=== PATIENT | female | born 1995 | race Two or more races ===

== ENCOUNTER 2016-12-27 16:05 | Emergency (ER) | payer MEDICAID ==
[~2016-12-27] VITALS: Ht 162.6 cm; Wt 97.5 kg
[~2016-12-27 16:05] MED LIST: PREN-96 PO
[2016-12-27 16:59] VITALS: BP 117/78
== END 2016-12-27 17:29 | disposition home or self-care (01) ==
LOC: ER 16:05

== ENCOUNTER 2017-07-25 15:08 | Emergency (ER) | payer MEDICAID ==
[~2017-07-25] VITALS: Ht 162.6 cm; Wt 116.1 kg
[2017-07-25 15:43] VITALS: BP 159/107
[2017-07-25] MEDS ORDERED: SUMAtriptan SUCCINATE 6 MG/0.5 ML VL SC ONE (16:00)
[2017-07-25] MEDS ORDERED: HYDROmorphone HCL 2 MG/ML VL IM ONE (16:00)
[2017-07-25] MEDS ORDERED: ONDANSETRON HCL 4 MG/2 ML VIAL IM ONE (16:00)
== END 2017-07-25 17:17 | disposition home or self-care (01) ==
LOC: ER 15:08
DX: G43.909 Migraine, unspecified, not intractable, without status migrainosus (principal); J32.9 Chronic sinusitis, unspecified
CPT/HCPCS: 96372; 99284; J1170; J2405; J3030

== ENCOUNTER 2025-02-14 11:40 | Emergency (ER) | payer MEDICAID ==
[~2025-02-14] VITALS: Ht 162.6 cm; Wt 82.0 kg
--- NOTE | 2025-02-14 11:52 | ED.PDOC ---
GI ASSESSMENT HPI Comments This is a 30-year-old female who comes in with chief complaint of vomiting and diarrhea for the past two days. The patient is also complaining of some shortness for breath as well as some abdominal pain which she describes as a 10/10. The patient came in somewhat hypertensive with a blood pressure of 144/111. She states that she has taken a couple of test lately and they were positive. Upon arrival, the patient is still having vomiting despite receiving 4 mg of Zofran IV EN route. The patient also denies any recent ETOH use but states that she did use some marijuana approximately one week ago. Chief Complaint: Nausea/Vomiting Time Seen by MD: 11:44 Primary Care Provider: UNKNOWN Reviewed Notes: Nurses Notes, Medications, Allergies (No allergies to medications) Allergies: Coded Allergies: NO KNOWN ALLERGIES (Unverified , 12/30/13) Home Meds Reported Medications Vit W/ Ferrous Fumara ( One Daily) Daily Tab, 1 TAB PO DAILY, #90 TAB 3 Refills 07/20/14 Information Source: Patient Mode of Arrival: EMS Timing: Days Duration: Since onset Prehospital treatment: None Quality: Aching, Cramping Vomitus: Bilious Stool: Watery Severity: Moderate Recent: None Recent Hx of: Other (Recent marijuana use) Pain Location: Diffuse Modifying Factors: Nothing Past Medical History PAST MEDICAL HISTORY: Denies Surgical History: Denies all surgeries ELECTRONICS TEACHER History: No Pertinent ELECTRONICS TEACHER History Family History Family History: Unknown Social History Smoker: Non-Smoker Alcohol: Denies ETOH Use Drugs: Denies Drug Use Physical Exam General Appearance: Moderate Distress HEENT: Normal ENT Inspection, Pharynx Normal, TMs Normal Neck: Full Range of Motion, Non-Tender, Normal, Normal Inspection Respiratory: Chest Non-Tender, Lungs Clear, No Accessory Muscle Use, No Re spiratory Distress, Normal Breath Sounds Cardiovascular: No Edema, No JVD, No Murmur, No Gallop, Normal Peripheral Pulses, Regular Rate/Rhythm Breast Exam: Deferred Gastrointestinal: Diffuse, No Organomegaly, No Pulsatile Mass, Normal Bowel Sounds, Soft, Tenderness Genitalia: Deferred Pelvic: Deferred Rectal: Deferred Extremities: No calf tenderness, Normal capillary refill, Normal inspection, Normal range of motion, Non-tender, No pedal edema Musculoskeletal : Apperance: Normal Neurologic: Alert, starting gate driver II-XII nml as Tested, Motor Weakness, Normal Affect, Normal Mood, No Sensory Deficits Cerebellar Function: Normal Reflexes: Normal Skin: Dry, Normal Color, Warm Lymphatic: No Adenopathy Was a procedure done? Was a procedure done?: No GI differential Dx Differential Diagnosis: Gastritis/PUD, Gastroenteritis, Inflammatory BD, Pancreatitis, UTI, Electrolyte Imbalance, Food Poisoning X-Ray, Labs, Meds, VS Vital Signs Date Time Temp Pulse Resp B/P (MAP) Pulse Ox O2 Delivery O2 Flow Rate FiO2 02/14/25 13:22 82 18 96 Room Air 02/14/25 13:22 98.3 82 18 152/85 (107) 96 98.3 02/14/25 11:49 98.7 87 20 143/105 (118) 100 98.7 Lab Test 02/14/25 13:23 02/14/25 12:06 Range/Units Urine Test Positive Negative White Blood Count 13.1 H 4.4-10.8 10^3/uL Red Blood Count 4.50 4.0-5.20 10^6/uL Hemoglobin 14.3 12.2-16.2 g/dL Hematocrit 40.6 36.0-46.0 % Mean Corpuscular Volume 90.1 80.0-100.0 fL Mean Corpuscular Hemoglobin 31.8 28.0-32.0 pg Mean Corpuscular Hemoglobin Concent 35.3 32.0-36.0 g/dL Red Cell Distribution Width 13.4 11.8-14.3 % Platelet Count 435 140-450 10^3/uL Mean Platelet Volume 6.9 6.9-10.8 fL Neutrophils (%) (Auto) 79.4 37.0-80.0 % Lymphocytes (%) (Auto) 13.6 10.0-50.0 % Monocytes (%) (Auto) 6.0 0.0-12.0 % Eosinophils (%) (Auto) 0.2 0.0-7.0 % Basophils (%) (Auto) 0.8 0.0-2.0 % Neutrophils # (Auto) 10.4 H 1.6-8.6 10 ^3/uL Lymphocytes # (Auto) 1.8 0.4-5.4 10 ^3/uL Monocytes # (Auto) 0.8 0-1.3 10 ^3/uL Eosinophils # (Auto) 0 0-0.8 10 ^3/uL Basophils # (Auto) 0.1 0-0.2 10 ^3/uL Nucleated Red Blood Cells 0.0 % Sodium Level 140 136-145 mmol/L Potassium Level 3.1 L 3.5-5.1 mmol/L Chloride Level 105 98-107 mmol/L Carbon Dioxide Level 21 20-31 mmol/L Anion Gap 14 5-15 Blood Urea Nitrogen 5 L 9-23 mg/dL Creatinine 0.59 0.550-1.02 mg/dL Glomerular Filtration Rate Calc 123 >90 mL/min BUN/Creatinine Ratio 8.5 L 10.0-20.0 Serum Glucose 122 H 74-106 mg/dL Calcium Level 9.6 8.7-10.4 mg/dL Total Bilirubin 0.7 0.2-1.0 mg/dL Aspartate Amino Transferase (AST) 14 0-34 U/L Alanine Aminotransferase (ALT) 10 7-40 U/L Alkaline Phosphatase 104 46-116 U/L Total Protein 8.2 5.7-8.2 g/dL Albumin 5.1 H 3.2-4.8 g/dL Lipase 32 12-53 U/L Current Medications Medications (Trade) Dose Ordered Sig/Leslie Route Start Time Stop Time Status Last Admin Sodium Chloride 1,000 ml @ 1,000 mls/hr Q1H ONCE IVB 02/14/25 12:00 02/14/25 12:59 DC 02/14/25 14:26 Prochlorperazine Edisylate (Compazine Inj) 10 mg ONCE ONCE IV 02/14/25 12:00 02/14/25 12:01 DC 02/14/25 14:27 Pantoprazole Sodium (Protonix) 40 mg ONCE ONCE IV 02/14/25 12:00 02/14/25 12:01 DC 02/14/25 14:27 IV Hep-Lock was established. The patient was given a 1 L bolus of normal saline. The patient was given Compazine 10 mg IV push for the vomiting The patient is given Protonix 40 mg IV push The patient's CBC shows an elevated white blood cell count of 13.1 The chemistry panel shows hypokalemia at 3.1 The patient is still having some abdominal pain and still feels very nauseated The patient is being given potassium as a K rider secondary to the ability to keep anything down orally The patient is being admitted at this time Images Reviewed?: Images reviewed and evaluated by me Time of 1ST Reevaluation: 18:02 Reevaluation 1ST: Unchanged Patient Education/Counseling: Diagnosis, Treatment, Prognosis Family Education/Counseling: No Family Present Departure 1 Departure Time of Disposition: 18:03 Impression: Primary Impression: Intractable abdominal pain Additional Impressions: Hyperemesis Hypokalemia Disposition: ADMITTED INPATIENT Admit to: Med Surg Condition: Fair Critical Care Note Critical Care Time?: No Stability Stability form required: Yes Unstable for transfer: ED Physician Assesment (Clinical assesment) Heart Score Heart Score: Heart Score Response (Comments) Value History N/A 0 EKG N/A 0 Age N/A 0 Risk Factors N/A 0 Troponin N/A 0 Total 0 KACIE OLVERA MD Feb 14, 2025 11:52
[2025-02-14 12:24] LABS: Basophils # (auto) 0.1 10 ^3/uL (0-0.2); Basophils % (auto) 0.8 % (0.0-2.0); Eosinophils # (auto) 0 10 ^3/uL (0-0.8); Eosinophils % (auto) 0.2 % (0.0-7.0); Hematocrit 40.6 % (36.0-46.0); Hemoglobin 14.3 g/dL (12.2-16.2); Lymphocytes # (auto) 1.8 10 ^3/uL (0.4-5.4); Lymphocytes % (auto) 13.6 % (10.0-50.0); Mean Corpuscular Hemoglobin 31.8 pg (28.0-32.0); Mean Corpuscular Hgb Conc. 35.3 g/dL (32.0-36.0); Mean Corpuscular Volume 90.1 fL (80.0-100.0); Monocytes # (auto) 0.8 10 ^3/uL (0-1.3); Neutrophils # (auto) 10.4 10 ^3/uL (1.6-8.6); Neutrophils % (auto) 79.4 % (37.0-80.0); Platelet Count (auto) 435 10^3/uL (140-450); Red Cell Distribution Width 13.4 % (11.8-14.3); White Blood Cell 13.1 10^3/uL (4.4-10.8)
[2025-02-14 12:41] LABS: Alanine Aminotransferase 10 U/L (7-40); Alkaline Phosphatase 104 U/L (46-116); Anion Gap 14 (5-15); Aspartate Aminotransferase 14 U/L (0-34); BUN/Creatinine Ratio 8.5 (10.0-20.0); Calcium 9.6 mg/dL (8.7-10.4); Carbon Dioxide 21 mmol/L (20-31); Chloride 105 mmol/L (98-107); Lipase 32 U/L (12-53); Sodium 140 mmol/L (136-145)
[2025-02-14 12:42] LABS: Albumin 5.1 g/dL (3.2-4.8); Bilirubin, Total 0.7 mg/dL (0.2-1.0); Blood Urea Nitrogen 5 mg/dL (9-23); Glucose 122 mg/dL (74-106); Potassium 3.1 mmol/L (3.5-5.1); Total Protein 8.2 g/dL (5.7-8.2)
[2025-02-14 13:22] VITALS: BP 152/85; PULSE 82; RESP 18; TEMP 98.3; O2SAT 96
[2025-02-14] MEDS: SODIUM CHLORIDE 0.9% 1,000 ML IVB ONE (14:26)
[2025-02-14] MEDS: PROCHLORPERAZINE EDISYLATE 5 MG/ML 2ML VIAL IV ONE (14:27)
[2025-02-14] MEDS: PANTOPRAZOLE 40 MG/10 ML VIAL INJ IV ONE (14:27)
[2025-02-14] MEDS ORDERED: POTASSIUM CHL 20MEQ/100ML 100 ML IV ONE (18:15)
== END 2025-02-14 20:04 | disposition left against medical advice (07) ==
LOC: EDUNIT# 11:40 → EDBD 11:40 → ER 11:51
DX: E87.6 Hypokalemia (principal); R10.84 Generalized abdominal pain
CPT/HCPCS: 36415; 80053; 81025; 83690; 85025; 96361; 96374; 96375; 99284; J0780; J2470; J7030